=== PATIENT | female | born 1985 | race Caucasian/White ===

== ENCOUNTER 2017-04-25 15:20 | Emergency (ER) | payer MEDICAID ==
[~2017-04-25] VITALS: Ht 162.6 cm; Wt 94.1 kg
[~2017-04-25 15:20] MED LIST: ALBU18HF2 IH; ALBU6.7H INH; ALBU8.5H8 IH; ALBU8.5H8 INH; FLUT1DIS4 INH
[2017-04-25 15:29] VITALS: BP 122/85
[2017-04-25] MEDS ORDERED: BENZ-16 PO (16:14)
== END 2017-04-25 16:21 | disposition home or self-care (01) ==
LOC: ER 15:21
DX: R05 Cough (principal); R07.89 Other chest pain; J45.909 Unspecified asthma, uncomplicated; G89.29 Other chronic pain; Z88.0 Allergy status to penicillin; Z98.51 Tubal ligation status
CPT/HCPCS: 99283

== ENCOUNTER 2018-01-11 08:06 | Emergency (ER) | payer MEDICAID ==
[~2018-01-11] VITALS: Ht 162.6 cm; Wt 81.8 kg
[2018-01-11 09:11] LABS: BASOPHILS # (AUTO) 0.1 X10'3 (0-0.2); BASOPHILS % (AUTO) 0.4 % (0-1); EOSINOPHILS # (AUTO) 0.6 X10'3 (0-0.9); EOSINOPHILS % (AUTO) 4.1 % (0-6); HEMATOCRIT 28.8 % (35.0-45.0); HEMOGLOBIN 8.8 g/dl (12.0-16.0); LYMPHOCYTES # (AUTO) 0.7 X10'3 (1.1-4.8); MEAN CORPUSCULAR HEMOGLOBIN 20.7 PG (27.0-31.0); MEAN CORPUSCULAR HGB CONC 30.8 % (33.0-36.5); MEAN CORPUSCULAR VOLUME 67.2 FL (78-98); MONOCYTES # (AUTO) 0.2 X10'3 (0-0.9); MONOCYTES % (AUTO) 1.5 % (2-12); PLATELET COUNT 329 X10'3 (140-440); RED BLOOD COUNT 4.28 X10'6 (4.20-5.60); RED CELL DISTRIBUTION WIDTH 19.2 % (11.5-14.5); WHITE BLOOD COUNT 14.6 X10'3 (4.5-11.0)
[2018-01-11 09:14] LABS: PROTHROMBIN TIME 10.3 SECONDS (9.0-12.0)
[2018-01-11 09:16] LABS: CLARITY,URINE CLEAR (Clear); COLOR,URINE AMBER (Yellow); GLUCOSE, URINE NEGATIVE (Neg); KETONES,URINE TRACE mg/dl (Neg); LEUKOCYTE ESTERASE ,URINE NEGATIVE (Neg); NITRITES, URINE NEGATIVE (Neg); OCCULT BLOOD,URINE NEGATIVE (Neg); PROTEIN,URINE NEGATIVE (Neg); UROBILINOGEN,URINE 0.2 E.U/dL (0.2-1.0)
[2018-01-11 09:17] LABS: UA COLLECTION TYPE CLN CATCH MIDSTREAM
[2018-01-11 09:18] LABS: URINE HCG NEGATIVE (NEG)
[2018-01-11 09:19] LABS: ALANINE AMINOTRANSFERASE 19 U/L (12-78); ALBUMIN 4.4 G/DL (3.4-5.0); ALBUMIN/GLOBULIN RATIO 1.1 (1.1-1.5); ALKALINE PHOSPHATASE 75 IU/L (46-116); ANION GAP 12 (8-16); ASPARTATE AMINO TRANSFERASE 24 U/L (10-37); BILIRUBIN,TOTAL 0.5 MG/DL (0.1-1.0); BLOOD UREA NITROGEN 12 MG/DL (7-18); BUN/CREATININE RATIO 7.3 (6.6-38.0); CALCIUM 9.8 MG/DL (8.5-10.1); CHLORIDE 100 MMOL/L (99-107); CREATININE 1.64 MG/DL (0.40-0.90); GLUCOSE 123 MG/DL (70-104); LIPASE 180 U/L (73-393); POTASSIUM 3.7 MMOL/L (3.5-5.1); SODIUM 136 MMOL/L (135-145); TOTAL CARBON DIOXIDE 23.6 MMOL/L (24-32); TOTAL PROTEIN 8.5 G/DL (6.4-8.2); eGFR 36 ML/MIN
[2018-01-11 10:01] LABS: ANISOCYTOSIS 2+; MICROCYTOSIS 2+; PLATELET ESTIMATE NORMAL
[2018-01-11 10:03] LABS: ROULEAUX 1+
[2018-01-11 10:12] LABS: BURR CELLS FEW; ELLIPTOCYTES FEW; SCHISTOCYTES FEW
[2018-01-11] MEDS ORDERED: proMETHazine 25mg tablet PO ONE (10:55)
[2018-01-11] MEDS ORDERED: ondansetron 4mg rapidly disintigrating tab PO ONE (10:55)
[2018-01-11] MEDS ORDERED: BISA-155 PO (12:24)
[2018-01-11] MEDS ORDERED: LACT10SO PO (12:24)
[2018-01-11 12:49] VITALS: BP 127/82
== END 2018-01-11 12:50 | disposition home or self-care (01) ==
LOC: ER 08:07
DX: R10.84 Generalized abdominal pain (principal); K59.00 Constipation, unspecified; D64.9 Anemia, unspecified; R11.2 Nausea with vomiting, unspecified; M54.9 Dorsalgia, unspecified; G89.29 Other chronic pain; J45.909 Unspecified asthma, uncomplicated; Z88.6 Allergy status to analgesic agent; Z88.1 Allergy status to other antibiotic agents; Z88.0 Allergy status to penicillin; Z98.51 Tubal ligation status; Z79.899 Other long term (current) drug therapy
CPT/HCPCS: 36415; 80053; 81003; 81025; 83690; 85025; 85610; 99284; Q0169

== ENCOUNTER 2018-12-01 12:10 | Emergency (ER) | payer MEDICAID ==
[~2018-12-01 12:10] MED LIST changes: -ALBU6.7H INH; +ALBU6.7H9 INH; +BISA-155 PO; +LACT10SO PO
[2018-12-01 12:21] VITALS: BP 133/79
== END 2018-12-01 13:30 | disposition home or self-care (01) ==
LOC: ER 12:10
DX: S00.86XA Insect bite (nonvenomous) of other part of head, initial encounter (principal); G89.29 Other chronic pain; J45.909 Unspecified asthma, uncomplicated; F12.90 Cannabis use, unspecified, uncomplicated; Z98.51 Tubal ligation status; Z87.891 Personal history of nicotine dependence; Z88.0 Allergy status to penicillin; Z88.1 Allergy status to other antibiotic agents; Z88.6 Allergy status to analgesic agent; Z79.899 Other long term (current) drug therapy; W57.XXXA Bitten or stung by nonvenomous insect and other nonvenomous arthropods, initial encounter; Y93.89 Activity, other specified; Y92.89 Other specified places as the place of occurrence of the external cause; Y99.8 Other external cause status
CPT/HCPCS: 99281

== ENCOUNTER 2019-01-16 15:05 | Emergency (ER) | payer MEDICAID ==
[~2019-01-16] VITALS: Ht 162.6 cm; Wt 97.3 kg
[2019-01-16 15:15] VITALS: BP 140/84
[2019-01-16] MEDS ORDERED: NAPR-56 PO (16:30)
[2019-01-16] MEDS ORDERED: ketorolac trometh inj. 60 MG/2 ML VIAL IM ONE (16:35)
== END 2019-01-16 16:59 | disposition home or self-care (01) ==
LOC: ER 15:06
DX: S66.811A Strain of other specified muscles, fascia and tendons at wrist and hand level, right hand, initial encounter (principal); J45.909 Unspecified asthma, uncomplicated; G89.29 Other chronic pain; F12.90 Cannabis use, unspecified, uncomplicated; Z98.51 Tubal ligation status; Z88.0 Allergy status to penicillin; Z88.6 Allergy status to analgesic agent; Z88.1 Allergy status to other antibiotic agents; Z79.899 Other long term (current) drug therapy; W01.0XXA Fall on same level from slipping, tripping and stumbling without subsequent striking against object, initial encounter; Y93.89 Activity, other specified; Y92.89 Other specified places as the place of occurrence of the external cause; Y99.8 Other external cause status
CPT/HCPCS: 29125; 73110; 96372; 99283; J1885

== ENCOUNTER 2019-02-11 13:44 | Emergency (ER) | payer MEDICAID ==
[~2019-02-11] VITALS: Ht 162.6 cm; Wt 96.8 kg
[~2019-02-11 13:44] MED LIST changes: +NAPR-56 PO
[2019-02-11 13:58] VITALS: BP 119/89
[2019-02-11] MEDS ORDERED: ipratropium/albuterol 3ml nebule NEB ONE (15:10)
[2019-02-11] MEDS ORDERED: predniSONE 20 mg tablet PO ONE (15:10)
[2019-02-11] MEDS ORDERED: ALBU6.7H9 INH (15:32)
[2019-02-11] MEDS ORDERED: PRED20TA PO (15:32)
[2019-02-11] MEDS ORDERED: CEPH250T PO (15:32)
== END 2019-02-11 15:44 | disposition home or self-care (01) ==
LOC: ER 13:45
DX: J45.901 Unspecified asthma with (acute) exacerbation (principal); J40 Bronchitis, not specified as acute or chronic; G89.29 Other chronic pain; F12.90 Cannabis use, unspecified, uncomplicated; Z98.51 Tubal ligation status; Z88.6 Allergy status to analgesic agent; Z88.0 Allergy status to penicillin; Z88.1 Allergy status to other antibiotic agents; Z79.899 Other long term (current) drug therapy
CPT/HCPCS: 71046; 94640; 99283; J7512

== ENCOUNTER 2019-02-16 14:21 | Emergency (ER) | payer MEDICAID ==
[~2019-02-16] VITALS: Ht 162.6 cm; Wt 95.0 kg
[~2019-02-16 14:21] MED LIST changes: +CEPH250T PO; +PRED20TA PO
[2019-02-16 14:27] VITALS: BP 120/88
[2019-02-16] MEDS ORDERED: ATRNS (15:42)
[2019-02-16] MEDS ORDERED: BENZ-16 PO (15:42)
== END 2019-02-16 15:47 | disposition home or self-care (01) ==
LOC: ER 14:21
DX: R05 Cough (principal); B34.9 Viral infection, unspecified; J45.909 Unspecified asthma, uncomplicated; F12.90 Cannabis use, unspecified, uncomplicated; G89.29 Other chronic pain; Z98.51 Tubal ligation status; Z88.6 Allergy status to analgesic agent; Z88.0 Allergy status to penicillin; Z88.1 Allergy status to other antibiotic agents; Z79.899 Other long term (current) drug therapy
CPT/HCPCS: 99283

== ENCOUNTER 2024-02-20 08:52 | Outpatient (CLI) | payer MEDICAID ==
[~2024-02-20 08:52] MED LIST changes: +ALBU6.7H14 INH; -ALBU6.7H9 INH; +ALBU8.5H17 IH; +ALBU8.5H17 INH; -ALBU8.5H8 IH; -ALBU8.5H8 INH; +ATRNS; -CEPH250T PO; +LACT-373 PO; -LACT10SO PO; -NAPR-56 PO; -PRED20TA PO
== END 2024-02-20 23:59 | disposition home or self-care (01) ==
LOC: US 08:52
PROVIDERS: ATTEND Nurse Practitioner Family
DX: E04.1 Nontoxic single thyroid nodule (principal); E03.9 Hypothyroidism, unspecified
CPT/HCPCS: 76536